=== PATIENT | female | born 2000 ===

== ENCOUNTER 2025-02-15 13:03 | Outpatient (AMB) | payer OTHER, SELFPAY ==
--- NOTE | 2025-02-15 13:06 | MHC.PC.OV ---
Vital Signs 02/15/25 13:07 Height 5 ft 3 in Weight 161 lb BMI 28.5 BP 132/78 Blood Pressure Location Lt brachial Position Sitting Intake Visit Reasons: Annual exam- A1C needed Intake Note: Patient here for a physical exam Spool Worker Required: No Accompanied by: Self / Same As Patient Allergies semaglutide (From Ozempic) Adverse Reaction (Severe, Verified 02/15/25 13:20) Abdominal Pain dulaglutide (From Trulicity) Adverse Reaction (Intermediate, Verified 02/15/25 13:20) Abdominal Pain, vomiting metformin Adverse Reaction (Intermediate, Verified 02/15/25 13:20) hypoglycemia Medication List - Last Reconciled 02/15/25 by Jenni Simmons MD dextroamphetamine-amphetamine 5 mg PO escitalopram oxalate 5 mg PO DAILY fluticasone propionate 50 mcg/actuation (Flonase Allergy Relief) 1 spray intranasal Q12H ibuprofen 800 mg PO Q8H PRN 10 days lorazepam 0.5 mg PO DAILY Tobacco use date assessed: 02/15/25 Dental Screening Dental Screen Date: 02/15/25 Did you have a dental visit in the last 12 months?: Yes Did you have a dental problem in the last 6 months where you did not have access to dental care?: No Was dental information given to patient?: Patient has dentist HPI HPI Comments History of Present Illness Details The patient is a 24-year-old female presenting for a physical examination and management of chronic conditions. The patient has a history of Polycystic Ovary Syndrome (PCOS), which has been associated with irregular menstrual cycles and increased body hair growth. She reports that her menstrual cycles have become more irregular recently, with some months missed entirely. The patient has also noted increased body hair growth, particularly on her chest and chin. The patient has a history of depression and anxiety, for which she is under psychiatric care. She reports that her depression and anxiety have been worsening, with current medications not providing adequate relief. She is scheduled for a follow-up appointment with her psychiatrist. The patient has Type 2 Diabetes Mellitus, with a recent A1c of 6%, indicating good glycemic control. She has experienced side effects from medications such as Ozempic and Trulicity, leading to discontinuation. The patient is currently not on any diabetes-specific medication. The patient was hospitalized in August for gastritis, which was associated with elevated white blood cell count and hemoglobin levels. She reports that her gastritis symptoms have since resolved. Preventative care measures include a tetanus vaccination administered in 2022 and a Pap smear with HPV testing in 2023, both of which were normal. COUNT INCLUDES THE [facility] Medical History (Updated 02/15/25 @ 13:34 by Jenni Simmons MD) Mild major depression Depression Anxiety Hyperlipidemia associated with type 2 diabetes mellitus History of PCOS Surgical History History of wisdom tooth extraction Family History Mother Osteoporosis Mikki's disease Father Diabetes Kidney disease Hypercholesteremia Social History Housing: House Alcohol intake: current Alcohol intake frequency: holidays/special occasions only Alcohol type: wine and hard liquor Patient Tobacco Use Status: Never used Tobacco e-Cigarette/Vaping Use: Never Used Second Hand Smoke Exposure: No service: No Current occupational status: employed Current occupational exposures/hazards: No Cognitive needs: No Hearing needs: No Vision needs: Yes Female Reproductive History Menstrual Age of Menarche: 16 Questionnaire PHQ-9 Over the last 2 weeks, how often have you been bothered by any of the following problems? 1. Little interest or pleasure in doing things: more than half the days 2. Feeling down, depressed, or hopeless: more than half the days 3. Trouble falling or staying asleep, or sleeping too much: more than half the days 4. Feeling tired or having little energy: more than half the days 5. Poor appetite or overeating: more than half the days 6. Feeling bad about yourself - or that you are a failure or have let yourself or your family down: more than half the days 7. Trouble concentrating on things, such as reading the newspaper or watching television: more than half the days 8. Moving or speaking so slowly that other people could have noticed. Or the opposite - being so fidgety or restless that you have been moving around a lot more than usual: not at all 9. Thoughts that you would be better off or of hurting yourself in some way: not at all Total score: 14 Depression Screening Interpretation: Positive Depression Screening Follow-up: Existing condition, In treatment, Community Mental Health Worker F/U and Follow-up Visit Requested Depression Screening Done: Yes 79325 - PHQ-9 Billing: Yes Source: Developed by Drs. Mateo Syed, Kate Anne, Sergei Gomez and colleagues, with an educational crista from [employer]. Thrive Questionnaire Date Thrive assessed: 02/15/25 I am a: Patient What is your living situation today?: I have a steady place to live Within the past 12 months, did the food you bought not last and you didn't have the money to get more?: Never true Within the past 12 months, did you worry whether your food would run out before you got money to buy more?: Never true Do you have trouble paying for medicines?: No Do you have trouble getting transportation to medical appointments?: No Do you have trouble paying your heating and electricity bill?: No Do you have trouble taking care of your child, family member or friend?: No Do you have trouble with day-to-day activities such as bathing, preparing meals, shopping, managing finances, etc.?: Yes Are you currently unemployed and looking for a job?: No Are you interested in more education?: No Please select the resources that you would like help with: None Currently or been in a relationship where the following occur: I choose not to answer THRIVE Score: 0 AUDIT C Alcohol Use Questionnaire (AUDIT-C) 1. How often do you have a drink containing alcohol?: Monthly or less 2. How many drinks containing alcohol do you have on a typical day when you are drinking?: 1 or 2 3. How often do you have six or more drinks on one occasion?: Never Total Score: 1 Score Reviewed/Action Taken: No DORINDA-7 AMB Questionnaire DORINDA-7 Date DORINDA - 7 assessed: 02/15/25 Feeling nervous, anxious, or on edge: 2 = More than half the days Not being able to stop or control worryin = Nearly every day Worrying too much about different things: 3 = Nearly every day Trouble relaxin = More than half the days Being so restless that it is hard to sit still: 0 = Not at all Becoming easily annoyed or irritable: 2 = More than half the days Feeling afraid as if something awful might happen: 1 = Several days Total DORINDA-7 score (0-4 normal; 5-9 mild; 10-14 moderate; 15-21 severe): 13 Source: Developed by Drs. Mateo Syed, Kate Anne, Sergei Gomez and colleagues, with an educational crista from [employer]. DORINDA-7 Assessment Billing DORINDA-7 Assessment Tool: DORINDA-7 Assessment 80744 Review of Systems Const All systems reviewed & are unremarkable except as noted in HPI and below Card Denies chest pain at rest, Denies chest pain with activity, Denies edema, Denies irregular heart rhythm, Denies claudication, Denies dyspnea, Denies dyspnea on exertion, Denies orthopnea, Denies paroxysmal nocturnal dyspnea and Denies slow heart rate Resp Denies cough, Denies dyspnea and Denies dyspnea on exertion GI Denies abdominal pain, Denies change in bowel habits, Denies excessive flatus, Denies nausea and Denies vomiting Denies urinary incontinence, Denies urinary hesitancy and Denies urinary urgency Musc Denies atrophy, Denies deformity and Denies limited range of motion Skin/Breast Denies bleeding lesions, Denies changing lesions and Denies rash Physical exam (Primary Care) Vital Signs: Last Vital Signs BP 132/78 02/15/25 13:07 BMI result Body Mass Index 28.5 Tobacco/Smoking Status: Tobacco use Status Tobacco use date assessed 09/25/23 02/15/25 13:08 Patient Tobacco Use Status Never used Tobacco 02/15/25 13:08 e-Cigarette/Vaping Use Never Used 02/15/25 13:08 PHQ-9: PHQ-9 Score PHQ-9: Total score 14 02/15/25 13:08 Depression Screening Interpretation: Positive Depression Screening Follow-up: Existing condition, In treatment, Community Mental Health Worker F/U and Follow-up Visit Requested Thrive Assessment: Date of Thrive Assessment Date Thrive assessed 02/15/25 02/15/25 13:08 Currently or been in a relationship where the following occur: I choose not to answer HENMT Head: Yes normal to inspection, Yes normocephalic and Yes atraumatic Ears: external ears normal Eyes General: appearance normal, both eyes and all related structures Eyelids: Yes eyelids normal Conjunctivae: conjunctivae normal Neck Neck: Yes normal visual inspection and Yes supple Resp Effort & Inspection: normal respiratory effort Auscultation: clear to auscultation bilaterally Cardio Jugular venous distension: no JVD Rate: regular rate Rhythm: regular rhythm Heart sounds: S1 normal heart sound present and S2 normal heart sound present GI Inspection: Yes normal to inspection Palpation (GI): Soft to palpation and nontender Auscultation: normal bowel sounds Skin General skin exam: no rashes or lesions noted Neuro General: no focal motor deficits Extrem General: Yes full ROM Psych Appearance: grossly normal Results AMB Hemoglobin A1c AMB Hemoglobin A1c 6.0 % Last Edit by AUGUSTUS Vasques on 02/15/25 13:22 Coding Level of Care Code Est Pt Prev Care 18-39y(25779) Diagnoses Physical exam Z00.00 Moderate recurrent major depression F33.1 Type 2 diabetes mellitus without complication, without long-term current use of insulin E11.9 Diabetes mellitus type: type 2 Diabetes mellitus halfway insulin use: without halfway use Diabetes mellitus complication status: without complication Additional Codes PHQ-9 - 02609 - PHQ-9 Billing: Yes ([id number]) DORINDA-7 Assessment Billing - DORINDA-7 Assessment Tool: DORINDA-7 Assessment 57083 ([id number]) Time Spent (min) 30 Assessment & Plan Assessment & Plan (1) Physical exam: Code(s): Z00.00 - Encounter for general adult medical examination without abnormal findings Category: Medical (2) Moderate recurrent major depression: Code(s): F33.1 - Major depressive disorder, recurrent, moderate Category: Medical (3) Diabetes mellitus: Code(s): E11.9 - Type 2 diabetes mellitus without complications Category: Medical Qualifiers: Diabetes mellitus type: type 2 Diabetes mellitus halfway insulin use: without halfway use Diabetes mellitus complication status: without complication Qualified Code(s): E11.9 - Type 2 diabetes mellitus without complications Plan The patient will continue to monitor her blood glucose levels and maintain her current lifestyle modifications to manage her Type 2 Diabetes Mellitus, given her recent A1c of 6%. For her Polycystic Ovary Syndrome PCOS), the patient is advised to discuss potential treatment options, including oral contraceptives, with her antisubmarine weapons officer during her upcoming appointment. The patient is encouraged to continue her psychiatric care for depression and anxiety, with a follow-up appointment scheduled with her psychiatrist. Preventative care measures include maintaining up-to-date vaccinations and regular screenings, such as the recommended annual diabetic eye exam. Patient was informed and verbally consented to the use of an ambient scribe for clinic note documentation during this visit. I discussed with the patient the importance of maintaining her current lifestyle modifications to manage her Type 2 Diabetes Mellitus, given her recent A1c of 6%. We talked about the potential benefits of oral contraceptives for managing her Polycystic Ovary Syndrome (PCOS) symptoms, and I advised her to discuss this further with her antisubmarine weapons officer. I encouraged her to continue her psychiatric care for depression and anxiety, emphasizing the importance of her upcoming follow-up appointment with her psychiatrist. We also reviewed the need for regular preventative care, including vaccinations and screenings, such as the annual diabetic eye exam. Orders: Orders Comprehensive [place]. Panel Fast Today Z00.00 - Encounter for general adult medical examination without abnormal findings Complete Blood Count Auto Diff Today D72.829 - Elevated white blood cell count, unspecified AMB Hemoglobin A1c Today E11.9 - Type 2 diabetes mellitus without complications Lipid Panel Today E78.5 - Hyperlipidemia, unspecified Microalbumin, Random (w Creat) Today R80.9 - Proteinuria, unspecified Thyroid Stimulating Hormone Today E66.9 - Obesity, unspecified Medications: Discontinued ondansetron Discontinued Reason: Patient Completed Course 4 mg PO Q6-8H PRN 10 tabs 0RF nausea and vomiting loperamide (Imodium A-D) Discontinued Reason: Patient no longer taking 2 mg PO Q6H PRN 10 tabs 0RF loose stool semaglutide (Ozempic) Discontinued Reason: Patient no longer taking 0.5 mg (0.736 mL) subcut QWEEK 4 weeks 2.944 mL 0RF Patient Instructions: - Continue monitoring blood glucose levels and maintain lifestyle modifications for diabetes management. - Discuss potential treatment options for PCOS with your antisubmarine weapons officer. - Continue psychiatric care and attend your follow-up appointment with your psychiatrist. - Stay up-to-date with vaccinations and regular screenings, including the annual diabetic eye exam.
[2025-02-15 13:07] VITALS: BP 132/78; BMI 28.5
--- OUTSIDE RECORDS SUMMARY | 2025-02-15 13:43 | XMS_ITS | Clinical Summary ---
Author Organization [facility] Address [address] [address] Phone Care Team Providers Care Social Media Director Name Role Phone Jenni Killian MD Primary Care Provid er Allergies No known active allergies Medications DEXCOM G6 SENSOR Amarilis 4 Active dextroamphetamine-a mphetamine (ADDERALL) 5 mg Tab TAKE 1 TABLET BY MOUTH TWICE DAILY TAKE 2ND DOSE NO LATER THAN 2 PM 4 Active JARDIANCE 25 mg tablet Take 25 mg by mouth every morning. Active escitalopram oxalate (LEXAPRO) 10 MG tablet Take 1 tablet by mouth every morning. 4 Active hydrOXYzine HCL (ATARAX) 10 MG tablet Take 10 mg by mouth 3 (three) times a day as needed for anxiety. 4 Active ibuprofen (ADVIL,MOTRIN) 800 MG tablet 4 Active metFORMIN (GLUCOPHAGE) 500 MG tablet Take 1,000 mg by mouth. 3 Active ondansetron (ZOFRAN-ODT) 4 MG disintegrating tablet DISSOLVE 1 TABLET IN MOUTH EVERY 8 HOURS NEEDED FOR NAUSEA AND VOMITING 4 Active Active Problems No known active problems Immunizations Immunization Administration Dates Next Due Influenza Quadrivalent Preservative Free IM 03/23,10/05/2019 Meningococcal B, OMV (MenB-4C) 01/06/2018 Meningococcal B, recombinant (MenB-FHbp) 018 Meningococcal MCV4P 12/03/2019 Td (adult),2 Lf Tetanus Toxoid, PF, Adsorbed Social History Tobacco Use Types Packs/Day Years Used Date Smoking Tobacco: Never Smokeless Tobacco: Never Tobacco Cessation:Counseling Given: Not Answered Education Answer Date Recorded Are you interested in more education? Not on pk e 11/07/2023 Are you concerned about learning? Not on file 11/07/2023 No 11/07/2023 No 11/07/2023 Digital Access Answer Date Recorded No 11/07/2023 No 11/07/2023 Reliable internet access at home? Not on file 11/07/2023 Device with a working camera? Not on file Comments Unknown Sex and Gender Information Value Date Recorded Sex Assigned at Not on file Legal Sex Female 2:59 PM EDT Gender Identity Not on file Sexual Orientation Not on file Last Filed Vital Signs Vital Sign Reading Time Taken Comments Blood Pressure 134/80 11/07/2023 3:27 PM EDT Pulse 95 11/07/2023 3:27 PM EDT Temperature 36.6 C (97.9 F) 11/07/2023 3:27 PM EDT Respiratory Rate 18 11/07/2023 3:27 PM EDT Oxygen Saturation 98% 11/07/2023 3:27 PM EDT Inhaled Oxygen Concentration - - Weight - - Height - - Body Mass Index - - Plan of Treatment Health Maintenance Due Date Last Done Comments CREATININE LEVEL 2001 DEPRESSION SCREENING 2013 SMOKING Hx and SMOKELESS TOBACCO SCREENING 2014 HPV VACCINES (1 - 3-dose series) 2016 CHLAMYDIA SCREENING 2017 MENINGOCOCCAL VACCINES (B) ( 2 of 2 - Bexsero SCDM 2-dose series) 11/15/2018 07/17/2018, 01/06/2018 HEPATITIS C SCREENING 11/28/2019 HIV ONE-TIME SCREENING (18-6 5 YEARS) 11/28/2019 PAP SMEAR 2022 COVID-19 VACCINE (3 - 2023-2 5 season) 2024 01/07/2021, 12/17/2020 Adult Td,Tdap Booster 01/04/2033 01/04/2023 MENINGOCOCCAL VACCINES (ACWY) Completed 12/03/2019 HEPATITIS A VACCINES Aged Out No long er eligible based on patient's age to complete this topic HIB VACCINES Aged Out No longer eligi ble based on patient's age to complete this topic PNEUMOCOCCAL VACCINES (0-49 years) Aged Out No longer eligible b ased on patient's age to complete this topic Medical Devices Not on file Insurance [facility] [address] [place] [id number] [place] [address] ACO Care Teams Social Media Director Relationship Specialty Start Date End Date Jenni Killian MD [address] [place] [address] PCP - General Internal Medicine 11/07/23 Additional Source Comments The information contained in this document represents components of the legal health record. It is not the complete legal health record.[facility]
== END 2025-02-15 13:35 | disposition home or self-care (01) ==
LOC: HO.HMCH 13:04
PROVIDERS: PCP Internal Medicine; Visit Provider Internal Medicine
DX: Z00.00 Encounter for general adult medical examination without abnormal findings (principal); F33.1 Major depressive disorder, recurrent, moderate; E11.9 Type 2 diabetes mellitus without complications

== ENCOUNTER → 2025-02-15 13:03 | Outpatient (BNVA) | payer OTHER, SELFPAY | PROVIDERS: PCP Internal Medicine; Visit Provider Internal Medicine | DX: Z00.00 Encounter for general adult medical examination without abnormal findings (principal); E28.2 Polycystic ovarian syndrome; F41.9 Anxiety disorder, unspecified; E11.9 Type 2 diabetes mellitus without complications; F33.1 Major depressive disorder, recurrent, moderate; R80.9 Proteinuria, unspecified; E66.9 Obesity, unspecified; Z68.28 Body mass index [BMI] 28.0-28.9, adult; Z79.899 Other long term (current) drug therapy | CPT/HCPCS: 83036; 96127; 99395 ==